=== PATIENT | female | born 2000 | race Caucasian/White ===

== ENCOUNTER 2023-08-05 00:21 | Inpatient (IN) ==
[2023-08-05 01:45] LABS: ABS Basophils 0.2 10^3/uL (0.0-0.1); ABS Eosinophils 0.2 10^3/uL (0.0-0.5); ABS Lymphocytes 2.2 10^3/uL (1.0-4.8); ABS Monocytes 0.6 10^3/uL (0.0-0.9); ABS Neutrophils 4.9 10^3/uL (1.5-7.6); ABS Nucleated RBC 0.01 10^3/ul; Eosinophil % 2.5 %; Hematocrit 35.8 % (35-45); Hemoglobin 12.4 g/dL (11.5-14.3); Lymphocyte % 27.2 %; Mean Corpuscular Hgb Conc 34.6 g/dL (31-36); Mean Corpuscular Volume 89.8 fL (80-97); Mean Platelet Volume 8.6 fL (7.5-11.2); Nucleated Red Blood Cells % 0.1 /100 WBC (0.0-0.4); Platelet Count 274 10^3/uL (150-450); Red Blood Count 3.99 10^6/uL (3.63-4.92); Red Cell Distribution Width 13.4 % (12-17); White Blood Count 8.1 10^3/uL (3.8-11.8)
[2023-08-05 01:46] LABS: Urine Appearance Clear; Urine Bilirubin Negative (Negative); Urine Blood Negative (Negative); Urine Color Straw; Urine Glucose Negative (Negative); Urine Ketones Negative (Negative); Urine Nitrite Negative (Negative); Urine Protein Negative (Negative); Urine Specific Gravity 1.006 (1.002-1.030); Urine Urobilinogen Negative (Negative)
[2023-08-05 02:07] LABS: Albumin 4.5 g/dL (3.2-5.2); Anion Gap 6 mmol/L (2-16); CO2 Carbon Dioxide 25 mmol/L (22-32); Calcium 9.3 mg/dL (8.6-10.3); Chloride 109 mmol/L (101-111); Potassium 3.9 mmol/L (3.5-5.0); Sodium 140 mmol/L (135-145)
[2023-08-05 02:10] LABS: Urine Benzodiazepine Screen None Detected (None Detect); Urine Cannabinoids Screen None Detected (None Detect); Urine Opiates Screen None Detected (None Detect)
[2023-08-05 02:11] LABS: HCG Pregnancy < 0.60 mIU/mL
[2023-08-05 02:12] LABS: Acetaminophen < 15 mcg/mL; Alcohol, S < 13 mg/dL (<13); Salicylate < 2.50 mg/dL (<30)
[2023-08-05 02:13] LABS: ALT 11 U/L (7-52); AST 13 U/L (13-39); Albumin/Globulin Ratio 1.7 (1-3); Alkaline Phosphatase 46 U/L (35-149); Blood Urea Nitrogen 10 mg/dL (6-24); Creatinine, Serum 0.72 mg/dL (0.51-0.95); Globulin 2.6 g/dL (2-4); Glucose 125 mg/dL (70-100); Total Protein 7.1 g/dL (6.4-8.9); eGFR CKD-EPI 121.9 (>60)
[2023-08-05 02:22] LABS: TSH Ultra Thyroid Stim Horm 1.88 mcIU/mL (0.34-5.60)
[2023-08-05] MEDS ORDERED: Al Hydrox/Mg Hydrox/Simet LIQ 30 ML UDC PO PRN (03:34)
[2023-08-05] MEDS: Vitamin THERAPEUTIC TAB PO SCH (08:33)
[2023-08-05] MEDS ORDERED: Nicotine GUM 2MG FRUIT FLAVOR PO PRN (17:56)
[2023-08-06 08:38] LABS: HDL Cholesterol 47.7 mg/dL
[2023-08-06] MEDS: Vitamin THERAPEUTIC TAB PO SCH (08:45)
[2023-08-06] MEDS: PTO:Linaclotide 290 mcg CAP (NF) PO SCH ×2 (08:47→09:15)
[2023-08-07] MEDS: PTO:Linaclotide 290 mcg CAP (NF) PO SCH (07:31)
[2023-08-07] MEDS: Venlafaxine XR 75 mg PO SCH (07:31)
[2023-08-07] MEDS: Vitamin THERAPEUTIC TAB PO SCH (07:31)
[2023-08-08] MEDS: Vitamin THERAPEUTIC TAB PO SCH (07:48)
[2023-08-08] MEDS: Venlafaxine XR 75 mg PO SCH (07:48)
[2023-08-08] MEDS: PTO:Linaclotide 290 mcg CAP (NF) PO SCH (07:49)
[2023-08-08 10:44] VITALS: BP 107/64
== END 2023-08-08 01:15 | disposition home or self-care (01) | DRG 751 ==
LOC: ED 00:21 → EDHOLD 03:34 → BSU 04:47
PROVIDERS: ADMIT Psychiatry & Neurology Psychiatry; ATTEND Psychiatry & Neurology Psychiatry